=== PATIENT | female | born 1945 | race Caucasian/White ===

== ENCOUNTER → 2016-12-17 | Outpatient (CLI) | payer MEDICARE, OTHER ==
[~2016-12-17] MED LIST: ASPI-999 PO; CALC-857 PO; CETI10CA PO; CRAN1CAP5 PO; ESTR0.62 PO; FENO145T20 PO; GABA600T2 PO; HYDR-3816 PO; LISI1TAB6 PO; MULT-141 PO; TRAZ-28 PO
--- NOTE | 2016-12-17 15:13 | Diagnostic Imaging Report ---
PROCEDURE: MRI left upper extremity without contrast. TECHNIQUE: Multiplanar, multisequence non contrast-enhanced MRI of the left elbow was accomplished. INDICATION: Medial elbow pain. Findings: LIGAMENTS: By non-arthrogram imaging, the medial and lateral ligamentous complexes of the elbow are intact. TENDONS AND MUSCLES: The distal brachialis and triceps tendons are intact. Visualized aspects of the distal biceps are normal; however, the technologist did not include the field of image to include the distal radial insertion on the radial tuberosity. Marked heterogeneous thickening of the origin of the common flexor tendons from the medial humeral condyle with associated partial-thickness tearing of the deep and anterior fibers. The origin of the lateral common extensor tendons is normal. Mild interstitial edema-like signal tracks into the pronator teres muscle in the proximal forearm indicative of low-grade strain. BONES AND CARTILAGE: No fracture. Articular cartilage of the elbow is preserved. No osteochondral lesion. SOFT TISSUES: No significant elbow joint effusion. No olecranon or bicipitoradial bursitis. The ulnar nerve is normal in configuration without mass effect in the cubital tunnel. Normal fat planes around the median and radial nerves at the level of the elbow. IMPRESSION: 1. Tendinopathy with partial-thickness tearing of the common flexor tendons from their origin on the medial humeral condyle. This directly correlates to patient's region of pain. 2. Low-grade muscle strain of the pronator teres in the proximal medial forearm also likely contributes to patient's pain. Dictated by: Dictated on workstation # [id number]
== END ==
LOC: RAD 11:09
PROVIDERS: ATTEND Nurse Practitioner
DX: S56.812A Strain of other muscles, fascia and tendons at forearm level, left arm, initial encounter (principal); S56.212A Strain of other flexor muscle, fascia and tendon at forearm level, left arm, initial encounter; X58.XXXA Exposure to other specified factors, initial encounter; Y99.8 Other external cause status
CPT/HCPCS: 73221

== ENCOUNTER 2016-12-23 12:02 | Outpatient (CLI) | payer MEDICARE, OTHER ==
[~2016-12-23] VITALS: Ht 156.2 cm; Wt 48.5 kg
[2016-12-23] MEDS ORDERED: MULT-141 PO (12:19)
[2016-12-23] MEDS ORDERED: ESTR0.62 PO (12:19)
[2016-12-23] MEDS ORDERED: GABA600T2 PO (12:19)
[2016-12-23] MEDS ORDERED: CRAN1CAP5 PO (12:19)
[2016-12-23] MEDS ORDERED: LISI1TAB6 PO (12:19)
[2016-12-23] MEDS ORDERED: FENO145T20 PO (12:19)
[2016-12-23] MEDS ORDERED: CALC-857 PO (12:19)
[2016-12-23] MEDS ORDERED: ASPI-999 PO (12:19)
[2016-12-23] MEDS ORDERED: TRAZ-28 PO (12:19)
[2016-12-23] MEDS ORDERED: CETI10CA PO (12:19)
[2016-12-23 12:27] VITALS: BP 133/65
== END 2016-12-23 13:26 | disposition home or self-care (01) ==
LOC: PREOP 12:02
PROVIDERS: ATTEND Orthopaedic Surgery
DX: Z01.818 Encounter for other preprocedural examination (principal); M77.02 Medial epicondylitis, left elbow; G56.22 Lesion of ulnar nerve, left upper limb
CPT/HCPCS: 87081

== ENCOUNTER 2016-12-29 06:55 | Day surgery (SDC) | payer MEDICARE, OTHER ==
--- NOTE | 2016-12-23 09:56 | HISTORY AND PHYSICAL ---
DATE OF SERVICE: 12/29/2016 DATE OF ADMISSION: 12/29/2016 HISTORY: The patient is a 71-year-old ambidextrous female with a 1 year history of left medial elbow pain. She recently began to experience small finger and ring finger paresthesias as well. She has undergone treatment with injections by an outside provider. An MRI was obtained which revealed partial thickness tearing of the medical epicondyle flexor attachment. Due to functional impairment and failure to improve with extensive conservative measures, the patient has elected to proceed with surgical intervention. REVIEW OF SYSTEMS: No chest pain, no shortness of breath, no dysuria. PAST MEDICAL HISTORY: Neuropathy, hypertension, hyperlipidemia. PAST SURGICAL HISTORY: Miscarriage, right ankle. FAMILY HISTORY: Ischemic heart disease. PRIMARY CARE PROVIDER: Dr. Aldridge. MEDICATIONS: Fenofibrate, lisinopril, Premarin, trazodone, gabapentin, Caltrate, aspirin, Zyrtec. ALLERGIES: SULFA, DARVOCET. SOCIAL HISTORY: The patient drinks alcohol rarely and has never smoked. PHYSICAL EXAMINATION: The patient is well-developed, well-nourished, no acute distress. HEENT: Normocephalic, atraumatic. Pupils equal, round, and reactive to light. Oropharynx is clear. NECK: Supple with no lymphadenopathy. LUNGS: Clear to auscultation bilaterally. HEART: Regular rate and rhythm. ABDOMEN: Soft, nontender, nondistended. EXTREMITIES: The left elbow demonstrates the cubital tunnel with positive elbow flexion test. She is tender at her medial epicondyle and has pain with resisted MCP flexion. She has full active flexion and extension of the elbow and full pronation and supination of the forearm. IMPRESSION: Left elbow medial epicondylitis with associated cubital tunnel syndrome. PLAN: Left elbow medial epicondyle debridement and repair and cubital tunnel release. The risks, benefits, options and ramifications to recovery were discussed at length with the patient. She understands and wishes to proceed. Job ID: [id number] DocumentID: [id number] Dictated Date: 12/21/2016 15:50:49 Mathematics Improvement Teacher Date: 12/21/2016 19:13:56 Dictated By: GHAZALA EARL MD
[~2016-12-29] VITALS: Ht 156.2 cm; Wt 48.5 kg
[~2016-12-29 06:55] MED LIST changes: -HYDR-3816 PO
[2016-12-29 07:00] VITALS: BP 149/75
[2016-12-29] MEDS ORDERED: LACTATED RINGERS 1,000 ML IV PRN (07:19)
[2016-12-29] MEDS ORDERED: NS (IVPB) 50 ML ONE (07:24)
[2016-12-29] MEDS ORDERED: ceFAZolin 1,000 MG (ANCEF) VIAL ONE (07:24)
--- NOTE | 2016-12-29 07:26 | Progress Note-Pre Operative ---
Pre-Operative Progress Note H&P Reviewed The H&P was reviewed, patient examined and no changes noted. Date Seen by Provider: Dec 29, 2016 Time Seen by Provider: 07: Date H&P Reviewed: Dec 29, 2016 Time H&P Reviewed: 07: Pre-Operative Diagnosis: left elbow medial epicondylitis and cubital tunnel syndrome GHAZALA EARL MD Dec 29, 2016 07:26
--- NOTE | 2016-12-29 07:28 | Progress Note-Post Operative ---
Post-Operative Progess Note Surgeon (s)/Stitch Bonding Machine Tender (s) Surgeon GHAZALA EARL MD Stitch Bonding Machine Tender: Gerry Aguiar Pre-Operative Diagnosis left elbow medial epicondylitis and cubital tunnel syndrome Post-Operative Diagnosis lef elbow medial epicondylitis and cubital tunnel syndrome Procedure & Operative Findings Date of Procedure 12/29/16 Procedure Performed/Findings left elbow medial epicondyle debridement and repair and cubital tunnel release Anesthesia Type GETA Estimated Blood Loss Estimated blood loss (mL): minimal Specimens/Packing Specimens Removed none Packing: none GHAZALA EARL MD Dec 29, 2016 07:28
[2016-12-29] MEDS ORDERED: HYDROcodone/APAP 7.5 MG/325 MG (LORTAB, LORCET PLUS) TABLET PO PRN (07:45)
[2016-12-29] MEDS ORDERED: ceFAZolin 1 GM/NS 50 ML IVPB IV ONE ×2 (08:00)
[2016-12-29] MEDS ORDERED: CATHETER FLUSH 10 ML SYR IV PRN (08:00)
[2016-12-29] MEDS ORDERED: fentaNYL INJECTION 100 MCG/2 ML AMP ONE (08:15)
[2016-12-29] MEDS ORDERED: MIDAZOLAM 2 MG/2 ML (VERSED) VIAL ONE (08:15)
[2016-12-29] MEDS ORDERED: LIDOCAINE JELLY 2% (XYLOCAINE) 5 ML TUBE ONE (08:16)
[2016-12-29] MEDS ORDERED: ROCURONIUM 50 MG/5 ML (ZEMURON) VIAL IV ONE (08:16)
[2016-12-29] MEDS ORDERED: LIDOCAINE PF 2% 5 ML (XYLOCAINE) VIAL ONE (08:16)
[2016-12-29] MEDS ORDERED: proPOfol 200 MG/20 ML (DIPRIVAN) VIAL IV ONE (08:16)
[2016-12-29] MEDS ORDERED: ONDANSETRON 4 MG/2 ML (SDV) Z0FRAN ONE (08:16)
[2016-12-29] MEDS ORDERED: LACTATED RINGERS 1,000 ML IV ONE (08:16)
[2016-12-29] MEDS ORDERED: BUPIVACAINE 0.25% 30 ML (SENSORCAINE) VIAL ONE (08:42)
[2016-12-29] MEDS ORDERED: morphine PF (DURAMORPH) 10 MG/10 ML AMP ONE (08:42)
[2016-12-29] MEDS ORDERED: SEVOFLURANE (ULTANE) 15 ML INHAL SOLN ONE (09:30)
[2016-12-29 10:45] VITALS: BP 139/70
[2016-12-29 11:15] VITALS: BP 133/65
[2016-12-29] MEDS ORDERED: HYDR-3816 PO (11:39)
[2016-12-29 12:00] VITALS: BP 130/67
[2016-12-29 12:30] VITALS: BP 130/67
--- NOTE | 2016-12-29 16:01 | OPERATIVE REPORT ---
DATE OF SERVICE: 12/29/2016 PRE AND POSTOPERATIVE DIAGNOSES: 1. Left cubital tunnel syndrome. 2. Left elbow medial epicondylitis. PROCEDURES: 1. Left cubital tunnel release. 2. Left medial epicondyle debridement. SURGEON: GHAZALA EARL MD DATA POWER CONSULTANT: SHALOM WALLACE, who assisted throughout the procedure and closed the incisions. ANESTHESIA: General endotracheal by Shalom Quiroz CRNA TOURNIQUET TIME: 9 minutes at 250 mmHg. ESTIMATED BLOOD LOSS: Minimal. DRAINS: None. COMPLICATIONS: None. POSTOPERATIVE PLAN: Splint wear for 4 weeks. The patient was transported to the recovery room awake and in stable condition. STATEMENT OF MEDICAL NECESSITY: The patient is a 71-year-old female with progressively worsening left medial pain. She was tender over her medial epicondyle. She has undergone multiple injections by an outside provider but had continued symptoms. In addition, she complained of paresthesias in her small and ring fingers and had a positive elbow flexion test and a positive Tinel's at the cubital tunnel. Due to failure to improve with conservative measures and functional impairment, the patient elected to proceed with surgical intervention. PROCEDURE: After risks and benefits of the procedure were discussed and questions were answered, an informed consent was signed and placed in the chart. The operative site was confirmed in the preoperative holding area and initialed by the surgeon. The patient was then transported to the operating room after adequate levels of general endotracheal anesthetic were obtained and timeout was called confirming the operative site. The left upper extremity was prepped and draped in the usual sterile fashion with the arm elevated. The tourniquet was inflated to 250 mmHg and an L-shaped incision was made posterior to the medial epicondyle and the underlying soft tissues were carefully dissected. The ulnar nerve was identified proximal to the medial epicondyle and dissected proximally and then through the cubital tunnel and into the flexor/pronator mass. There was fusiform swelling of the nerve proximal to the epicondyle, but the nerve was intact. Once decompressed, the elbow was taken through a range of motion and no subluxation was noted, therefore, a transposition was not performed. The medial epicondyle flexor/pronator mass was then incised longitudinally at the inflammatory area and this was excised. The edges were then trephinated and the medial epicondyle was debrided with a rongeur. This was then closed with a 2-0 Vicryl in [id number] interrupted fashion. The tourniquet was deflated for a total tourniquet time of 9 minutes. Pressure was used for hemostasis. The wound was copiously irrigated. A 2-0 Vicryl was used to reapproximate subcutaneous tissue. The skin was closed with 4-0 nylon in running alternating horizontal mattress fashion. The incision was infiltrated with plain Marcaine. A soft dressing and wrist splint were applied and the patient was transported to the recovery room awake and in stable condition. Job ID: [id number] DocumentID: [id number] Dictated Date: 12/29/2016 09:53:52 Metal Spray Operator Date: 12/29/2016 16:00:33 Dictated By: GHAZALA EARL MD
== END 2016-12-29 12:30 | disposition home or self-care (01) ==
LOC: SDC 06:55
PROVIDERS: ATTEND Orthopaedic Surgery
DX: Z79.899 Other long term (current) drug therapy; M77.02 Medial epicondylitis, left elbow; G56.22 Lesion of ulnar nerve, left upper limb; G62.9 Polyneuropathy, unspecified; I10 Essential (primary) hypertension; E78.5 Hyperlipidemia, unspecified; Z79.82 Long term (current) use of aspirin

== ENCOUNTER → 2020-07-10 | Outpatient (CLI) | payer MEDICARE, OTHER ==
[~2020-07-10] MED LIST changes: -FENO145T20 PO; +FENO145T26 PO; -GABA600T2 PO; +GBPN600T PO; +HYDR-34 PO; +LISI1TAB29 PO; -LISI1TAB6 PO; -TRAZ-28 PO; +TRZ50T PO
--- NOTE | 2020-07-10 16:13 | Diagnostic Imaging Report ---
PROCEDURE: MRI left joint lower extremity without contrast. TECHNIQUE: Multiplanar, multisequence non contrast-enhanced MRI of the left lower extremity was accomplished. INDICATION: Pain and swelling in the left ankle. COMPARISON: None. FINDINGS: No acute fracture is seen in the left ankle. Alignment is normal. There is a small tibiotalar joint effusion. No cortical erosions are seen. The anterior and posterior syndesmotic ligaments are intact. The anterior talofibular ligament appears to be chronically torn and is not seen. The posterior talofibular ligament is intact. The calcaneofibular ligament is chronically torn. The deep fibers of the deltoid ligament demonstrate mildly increased signal but the fibers generally appear intact. The spring ligament appears intact. The plantar fascia is not thickened. The sinus tarsi has normal fatty signal. The Achilles tendon appears normal, however there is marked edema in Kager's fat pad. There is a longitudinal split tear of the retromalleolar and inframalleolar peroneus brevis tendon. The peroneus longus tendon is intact. There is mildly increased fluid in the peroneal tendon sheath and surrounding the tendons distally. The flexor tendons are intact. The extensor tendons appear intact. There is moderate deep soft tissue edema anterior to the ankle and in the deep soft tissues plantar to the midfoot. No soft tissue fluid collections are seen. There is a well-circumscribed round mass posterior to the distal tibia which measures 5 x 5 x 6 mm in size which is STIR bright and may represent a small nerve sheath tumor. IMPRESSION: 1. Small left ankle joint effusion, could also represent a synovitis on this noncontrast exam. No cortical erosions are seen. 2. Marked nonspecific deep soft tissue edema in Kager's fat pad, in addition to edema anterior to the ankle joint and plantar to the midfoot. 3. Sequela from old lateral ligamentous injury. 4. Longitudinal split tear of the peroneus brevis tendon with mild peroneal tenosynovitis. 5. Small 6 mm mass posterior to the tibia, may represent a small nerve sheath tumor. Dictated by: Dictated on workstation # [id number]
== END ==
LOC: RAD 14:33
PROVIDERS: ATTEND Family Medicine
DX: S86.312A Strain of muscle(s) and tendon(s) of peroneal muscle group at lower leg level, left leg, initial encounter (principal); M79.4 Hypertrophy of (infrapatellar) fat pad; M89.8X7 Other specified disorders of bone, ankle and foot
CPT/HCPCS: 73721

== ENCOUNTER → 2020-11-24 | Outpatient (CLI) | payer MEDICARE, OTHER ==
[~2020-11-24] MED LIST changes: +GADOBUTROL 7.5 MMOL/7.5 ML (GADAVIST) VIAL IV ONE
--- NOTE | 2020-11-24 12:51 | Diagnostic Imaging Report ---
PROCEDURE: MRI left joint lower extremity with and without contrast. TECHNIQUE: Multiplanar, multisequence pre and post contrast-enhanced MRI of the left lower extremity was accomplished. INDICATION: Mass on the anterior aspect of the knee. COMPARISON: None available. FINDINGS: Surface marker is placed on the anterior lateral aspect of the knee at the inferior pole of the patella to demarcate the site of palpable concern. At this site, there is some asymmetric prominence in the subcutaneous fat with septations present. No associated septal enhancement or nodularity within this region. This may represent a small lipoma which could be partially encapsulated as margins are hard to delineate. The area of asymmetric subcutaneous fat measures approximate 2.5 cm in craniocaudal dimension and 2.0 cm AP. No meniscal tear. Cruciate and collateral ligaments are intact. No full-thickness chondromalacia throughout the knee. There is some mild chondral wear throughout the weightbearing aspect of the medial and lateral compartments. No knee joint effusion or Lauren's cyst. No focal osseous lesion or marrow replacing process. IMPRESSION: 1. The site of palpable concern may represent a small unencapsulated lipoma. There are no imaging features that would suggest liposarcoma. 2. Mild degenerative chondral wear throughout the weightbearing aspect of the medial and lateral compartments. Otherwise, no internal derangement. Dictated by: Dictated on workstation # [id number]
== END ==
LOC: RAD 09:55
PROVIDERS: ATTEND Orthopaedic Surgery
DX: M17.12 Unilateral primary osteoarthritis, left knee (principal); D36.10 Benign neoplasm of peripheral nerves and autonomic nervous system, unspecified
CPT/HCPCS: 73723

== ENCOUNTER → 2022-05-28 | Outpatient (CLI) | payer MEDICARE, OTHER ==
[~2022-05-28] MED LIST changes: -GADOBUTROL 7.5 MMOL/7.5 ML (GADAVIST) VIAL IV ONE; -LISI1TAB29 PO; +LISI1TAB44 PO
--- NOTE | 2022-05-28 15:50 | Diagnostic Imaging Report ---
EXAMINATION: Left foot radiographs, 3 views. COMPARISON: None. HISTORY: 76-year-old female, left foot pain. 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 There are surgical clips at the level of the second metatarsal. There is no identified acute fracture. There is no cortical or aggressive bone destruction. Joint spaces are well preserved. There is a sclerotic lesion of the third metatarsal head likely reflecting benign bone island which measures 5 mm in size. IMPRESSION: Grossly unremarkable radiographs of the left foot. Dictated by: Dictated on workstation # [id number]
--- NOTE | 2022-05-28 18:29 | Diagnostic Imaging Report ---
EXAMINATION: Lumbar spine radiographs, five views including flexion and extension. COMPARISON: None. HISTORY: 76-year-old female, low back pain. FINDINGS: There is grade 1 anterolisthesis of L3 on L4 measuring 4 mm. This increases to 8 mm with flexion and is unchanged in extension. There is severe disc height loss at L3-L4. There is moderate disc height loss at L4-L5 and L5-S1. There is no identified compression deformity or fracture. There are predominantly left facet degenerative changes at L3-L4. There are bilateral facet degenerative changes at L4-L5. The sacroiliac joints are unremarkable in appearance. IMPRESSION: 1. Grade 1 anterolisthesis of L3 on L4 which increases during flexion. 2. Disc and facet degenerative changes of the lumbar spine most notable at L3-L4, L4-L5 and L5-S1. Dictated by: Dictated on workstation # [id number]
== END ==
LOC: RAD FS 14:04
PROVIDERS: ATTEND Family Medicine
DX: M47.26 Other spondylosis with radiculopathy, lumbar region (principal); M47.27 Other spondylosis with radiculopathy, lumbosacral region; M51.16 Intervertebral disc disorders with radiculopathy, lumbar region; M51.17 Intervertebral disc disorders with radiculopathy, lumbosacral region; M43.16 Spondylolisthesis, lumbar region; M79.672 Pain in left foot
CPT/HCPCS: 72110; 73630

== ENCOUNTER → 2022-07-08 | Outpatient (CLI) | payer MEDICARE, OTHER ==
--- NOTE | 2022-07-08 10:55 | Diagnostic Imaging Report ---
CliNICAL INDICATION: Patient has chronic low back pain. Patient had a recent fall. EXAM: MRI of the lumbar spine performed without IV contrast. Sequences include sagittal T2, sagittal T1, sagittal T2 fat-sat, and axial T2. COMPARISON: X-ray of the lumbar spine dated 05/28/2022. FINDINGS: There is no evidence of acute lumbar spine fracture. There are Modic type I degenerative signal changes involving the L3-L4 endplates. There is no significant paraspinal soft tissue abnormality. There is a subcentimeter cyst involving the right kidney. There is redundancy of the cauda equina nerve roots seen above the L3-L4 level due to the tight central canal stenosis. Otherwise, the visualized portions of the distal thoracic spinal cord, conus medullaris, and cauda equina nerve roots are unremarkable. The conus medullaris tip is seen at the upper L2 vertebral body level. There is no significant central canal stenosis. L1-L2: There is mild bilateral facet arthropathy. There is no significant central canal or neuroforaminal narrowing. L2-L3: There is moderate bilateral facet arthropathy. There is mild central canal stenosis. There is mild left neuroforaminal narrowing. There is no significant right neuroforaminal narrowing. L3-L4: There is 7 mm of grade 1 anterolisthesis of L3 on L4. There is no definite pars defect, as visualized. There is severe bilateral facet arthropathy/hypertrophy. There is diffuse disk bulge with uncovering of the posterior aspect of the disk. There is severe loss of disk space height. There is severe central canal stenosis with complete effacement of the thecal sac. There is severe left neuroforaminal narrowing and mild right neuroforaminal narrowing. L4-L5: There is diffuse disk bulge with moderate loss of disk space height. There is moderate to severe bilateral facet arthropathy/hypertrophy. There is moderate bilateral neuroforaminal narrowing. There is no significant central canal stenosis. L5-S1: There is mild bilateral facet arthropathy. There is minimal left neuroforaminal narrowing. There is no significant right neuroforaminal narrowing. There is no significant central canal stenosis. Sacrum: There are perineural cysts of varying size involving the right S1-S2 and S2-S3 regions. IMPRESSION: 1: There is multilevel lumbar spine degenerative disk disease which is worse at the L3-L4 level as described above. 2: There is 7 mm of grade 1 anterolisthesis of L1 on L2. There is a diffuse disk bulge with severe bilateral facet arthropathy/hypertrophy, severe central canal stenosis, and severe left neuroforaminal narrowing. Dictated by: Dictated on workstation # [id number]
== END ==
LOC: RAD 09:18
PROVIDERS: ATTEND Family Medicine
DX: M47.26 Other spondylosis with radiculopathy, lumbar region (principal); M48.061 Spinal stenosis, lumbar region without neurogenic claudication; M43.16 Spondylolisthesis, lumbar region; M51.16 Intervertebral disc disorders with radiculopathy, lumbar region; M47.27 Other spondylosis with radiculopathy, lumbosacral region
CPT/HCPCS: 72148